=== PATIENT | female | born 1990 | race Caucasian/White ===

== ENCOUNTER → 2019-01-04 | Outpatient (CLI) | payer OTHER ==
[~2019-01-04] MED LIST: CEPH500 PO; Flagyl500 MG PO; HYDACE5 PO; IBUP800 PO; Keflex500 MG PO; PHENA200 PO; PREN-16 PO; Pyridium100 MG PO; RANI150 PO; SULTRIDS PO
[2019-01-04 17:47] LABS: Free Thyroxine 1.03 ng/dL (0.70-1.60); Thyroid Stimulating Hormone 0.93 uIU/mL (0.360-4.800)
== END | disposition home or self-care (01) ==
LOC: LAB SHORT 17:23 → LAB EV 17:23
PROVIDERS: General Practice
DX: E04.9 Nontoxic goiter, unspecified (principal)
CPT/HCPCS: 84439; 84443; 84481

== ENCOUNTER 2019-09-03 20:25 | Inpatient (IN) | payer OTHER ==
[~2019-09-03] VITALS: Ht 160 cm; Wt 84.1 kg
[2019-09-03 21:03] LABS: BASOPHILS ABSOLUTE AUTO 0.02 K/mm3 (0.00-0.23); BASOPHILS PERCENT AUTO 0 % (0-2); EOSINOPHILS ABSOLUTE AUTO 0.06 K/mm3 (0.00-0.68); EOSINOPHILS PERCENT AUTO 1 % (0-6); Hematocrit 33.1 % (33.0-51.0); Hemoglobin 11.1 g/dL (11.5-16.0); IMMATURE GRAN ABSOLUTE AUTO 0.07 K/mm3 (0.00-0.10); IMMATURE GRAN PERCENT AUTO 1 % (0-1); LYMPHOCYTES ABSOLUTE AUTO 2.54 K/mm3 (0.84-5.20); LYMPHOCYTES PERCENT AUTO 22 % (21-46); MONOCYTES ABSOLUTE AUTO 0.47 K/mm3 (0.16-1.47); MONOCYTES PERCENT AUTO 4 % (4-13); Mean Corpuscular HGB 30.7 pg (26.0-34.0); Mean Corpuscular HGB Conc 33.5 g/dL (31.5-36.5); Mean Corpuscular Volume 91 fL (80-100); Mean Platelet Volume 9.6 fL (9.1-12.4); NEUTROPHILS ABSOLUTE AUTO 8.62 K/mm3 (1.96-9.15); NEUTROPHILS PERCENT AUTO 73 % (41-73); Platelet Count 255 K/mm3 (150-400); RDW Coefficient Variation 13.7 % (11.7-14.2); RDW Standard Deviation 46.1 fL (35.1-46.3); Red Blood Cell Count 3.62 M/mm3 (3.80-5.20); White Blood Cell Count 11.78 K/mm3 (4.00-11.30)
[2019-09-03] MEDS ORDERED: PRENATAL TABLE1 EAC2 (21:14)
--- NOTE | 2019-09-04 09:51 | NUR ---
PT HERE FOR SOCIAL INDUCTION ON HER DUE DATE. HER WILIAN AT BEDSIDE, SUPPORTIVE. #3 BABY TOGETHER, THIS IS A GIRL. PLANS UNMEDICATED , BUT AWARE OF OPTIONS. LABOR TEACHING DONE.
[2019-09-04] MEDS ORDERED: IBUP800 (10:01)
--- NOTE | 2019-09-04 17:30 | NUR ---
HUTCHISON PULLED, DANIEL CARE DONE. PT NOT WANTING TO GET UP YET. WILL CALL WHEN READY, OR TRY AGAIN AT [id number].
--- NOTE | 2019-09-04 19:06 | NUR ---
PT UP TO SHOWER, VOIDED IN SHOWER, LINEN CHANGED. REPORT TO ONCOMING SHIFT.
[2019-09-05 04:29] LABS: BASOPHILS ABSOLUTE AUTO 0.02 K/mm3 (0.00-0.23); BASOPHILS PERCENT AUTO 0 % (0-2); EOSINOPHILS ABSOLUTE AUTO 0.06 K/mm3 (0.00-0.68); EOSINOPHILS PERCENT AUTO 1 % (0-6); Hematocrit 31.4 % (33.0-51.0); Hemoglobin 10.4 g/dL (11.5-16.0); IMMATURE GRAN ABSOLUTE AUTO 0.05 K/mm3 (0.00-0.10); IMMATURE GRAN PERCENT AUTO 1 % (0-1); LYMPHOCYTES ABSOLUTE AUTO 2.75 K/mm3 (0.84-5.20); LYMPHOCYTES PERCENT AUTO 26 % (21-46); MONOCYTES ABSOLUTE AUTO 0.52 K/mm3 (0.16-1.47); MONOCYTES PERCENT AUTO 5 % (4-13); Mean Corpuscular HGB 30.5 pg (26.0-34.0); Mean Corpuscular HGB Conc 33.1 g/dL (31.5-36.5); Mean Corpuscular Volume 92 fL (80-100); Mean Platelet Volume 9.9 fL (9.1-12.4); NEUTROPHILS ABSOLUTE AUTO 7.23 K/mm3 (1.96-9.15); NEUTROPHILS PERCENT AUTO 68 % (41-73); Platelet Count 222 K/mm3 (150-400); RDW Coefficient Variation 13.7 % (11.7-14.2); RDW Standard Deviation 46.7 fL (35.1-46.3); Red Blood Cell Count 3.41 M/mm3 (3.80-5.20); White Blood Cell Count 10.63 K/mm3 (4.00-11.30)
--- NOTE | 2019-09-05 11:44 | NUR ---
WRITTEN DISCHARGE INSTRUCTIONS GIVEN TO PATIENT TO REVIEW AND ASK QUESTIONS
--- NOTE | 2019-09-05 13:23 | NUR ---
REPT OFF TO Xiao DORADO RN
== END 2019-09-05 16:30 | disposition home or self-care (01) | DRG 807 ==
LOC: BC 20:25
PROVIDERS: Advanced Practice Midwife; ADMIT Obstetrics & Gynecology
PROC: 3E0P7VZ Introduction of Hormone into Female Reproductive, Via Natural or Artificial Opening (ICD-10-PCS; 2019-09-03)
PROC: 10E0XZZ Delivery of Products of Conception, External Approach (ICD-10-PCS; principal; 2019-09-04)
PROC: 3E033VJ Introduction of Other Hormone into Peripheral Vein, Percutaneous Approach (ICD-10-PCS; 2019-09-04)
PROC: 3E0R3BZ Introduction of Anesthetic Agent into Spinal Canal, Percutaneous Approach (ICD-10-PCS; 2019-09-04)
DX: O80 Encounter for full-term uncomplicated delivery (principal); Z37.0 Single live birth; Z3A.40 40 weeks gestation of pregnancy
CPT/HCPCS: 36415; 51702; 85025; 86850; 86900; 86901; J1885; J2001; J2210; J2590; J3010; J7120; Q0163

== ENCOUNTER 2019-10-24 09:01 | Day surgery (SDC) | payer OTHER ==
[~2019-10-24] VITALS: Ht 162.6 cm; Wt 79.1 kg
[~2019-10-24 09:01] MED LIST changes: +IBUP800; +PRENATAL TABLE1 EAC2
--- NOTE | 2019-10-24 12:09 | NUR ---
10/24/19 [id number] Fanny Childress PT STATES THAT HER ABDOMEN DOESN'T HAVE PAIN JUST A LITTLE UNCOMFORTABLE. SHE COMPLAINS THAT SHE WISHES SHE WOULD WAKE UP FASTER AND I EXPLAINED THAT SHE MAY FEEL DROWSY MOST OF THE DAY.
== END 2019-10-24 12:50 | disposition home or self-care (01) ==
LOC: ORSCSDS 09:01
PROVIDERS: Obstetrics & Gynecology
PROC: 0UT74ZZ Resection of Bilateral Fallopian Tubes, Percutaneous Endoscopic Approach (ICD-10-PCS; principal; 2019-10-24 10:30)
DX: Z30.2 Encounter for sterilization (principal); N80.3 Endometriosis of pelvic peritoneum; F17.210 Nicotine dependence, cigarettes, uncomplicated
CPT/HCPCS: 88302; J0171; J0330; J0690; J1100; J1885; J2250; J2405; J2704; J3010; J7120

== ENCOUNTER → 2021-02-11 | Outpatient (CLI) | payer OTHER | END | disposition home or self-care (01) | LOC: LAB SHORT 16:46 → LAB 16:46 | DX: R82.79 Other abnormal findings on microbiological examination of urine (principal) | CPT/HCPCS: 87077; 87086; 87186 ==